=== PATIENT | female | born 1945 | race Two or more races ===

== ENCOUNTER 2021-06-27 15:57 | Emergency (ER) | payer OTHER ==
[~2021-06-27] VITALS: Ht 152.4 cm; Wt 68.9 kg
[2021-06-27] MEDS ORDERED: PEPCID20 MG PO (16:08)
[2021-06-27] MEDS ORDERED: ORPHENADRINE C100 MG PO (18:25)
[2021-06-27] MEDS ORDERED: BACTRIM DS TAB1 EACH PO (18:37)
== END 2021-06-27 19:12 | disposition home or self-care (01) ==
LOC: ER 15:57
DX: M62.838 Other muscle spasm (principal); V49.40XA Driver injured in collision with unspecified motor vehicles in traffic accident, initial encounter; Y92.89 Other specified places as the place of occurrence of the external cause